=== PATIENT | female | born 1960 | race Caucasian/White ===

== ENCOUNTER → 2016-08-24 | Outpatient (CLI) | payer OTHER | LOC: FIMAGING 08:03 | PROVIDERS: ATTEND Family Medicine | DX: Z12.31 Encounter for screening mammogram for malignant neoplasm of breast (principal) | CPT/HCPCS: G0202 ==

== ENCOUNTER 2017-01-03 10:54 | Day surgery (SDC) | payer OTHER ==
[2017-01-03] MEDS ORDERED: LR 1,000 ML IV ONE (11:14)
[2017-01-03] MEDS ORDERED: LIDOCAINE 1% 2 ML INJ ID PRN (11:14)
[2017-01-03 11:30] VITALS: PULSE 84; TEMP 97.9
--- NOTE | 2017-01-03 12:39 | PDGENHP ---
History & Physical Chief Complaint: phx polyps History of Present Illness: polyps removed in piecemeal Pertinent Past, Social, Family History: polyps removed in 2016 in piecemeal. alcohol glass every two weeks. no tobacco. no fhx cc or polyps Relevant Physical Exam: a+ox3. CTA. S1S2, RRR. +bs, soft nt Cardiorespiratory Assessment: class 1
--- NOTE | 2017-01-03 12:40 | PDPROPOC ---
Sedation Plan of Care Sedation Plan of Care: mental status noted, patient educated of risks, benefits , alternatives, patient can tolerate sedation ASA Classification: ASA 1 Planned drugs: fentanyl, midazolam Mallampati Score: Class 1 Mallampati Reference Image: 2 Patient passed 3-3-2 rule?: Yes
[2017-01-03] MEDS ORDERED: MIDAZOLAM 2 MG/2 ML VIAL ONE (13:06)
[2017-01-03] MEDS ORDERED: fentaNYL 100 MCG/2 ML INJ ONE (13:06)
--- NOTE | 2017-01-03 14:22 | GIREPORT ---
[facility] - Endoscopy Department Patient Name: Ayesha Alvarado Procedure Date: 01/03/2017 12:55 PM Patient Type: Outpatient Attending MD/ ER Physician: Toyin Hart Procedure: Colonoscopy Indications: Surveillance: History of piecemeal removal adenoma on last colonoscopy (< 3 yrs) Providers: Jordi Denton MD Medicines: Fentanyl 100 micrograms IV, Midazolam 5 mg IV Complications: No immediate complications. Description of Procedure: After obtaining informed consent, the scope was passed under direct vision. Throughout the proce dure, the patient's blood pressure, pulse, and oxygen saturations were monitored continuously. The Colonoscope with irrigation channel was introduced through the anus and advanced to the terminal ileum, with identification of the appendiceal orifice and IC valve. The colonoscopy was performe d without difficulty. The patient tolerated the procedure well. The quality of the bowel preparati on was good. Findings: The digital rectal exam was normal. The terminal ileum appeared normal. The entire examined colon appeared normal. Estimated Blood Loss: Estimated blood loss: none. Post Op Diagnosis: - The examined portion of the ileum was normal. - The entire examined colon is normal. - No specimens collected. Recommendation: - High fiber diet. - Repeat colonoscopy in 3 years for surveillance. - Patient has a contact number available for emergencies. The signs and symptoms of potential de layed complications were discussed with the patient. Return to normal activities tomorrow. Written discharge instructions were provided to the patient. - Continue present medications. - Discharge patient to home (ambulatory). - Return to primary care physician as previously scheduled. - Thank you for allowing me to help in your patient's care. Do not hesitate to call with any questions. Attending Participation: I personally performed the entire procedure. Bertin Bacon M.D Jordi Denton MD 01/03/2017 2:22:08 PM Number of Addenda: 0 Note Initiated On: 01/03/2017 12:55 PM Total Procedure Duration Time 0 hours 19 minutes 43 seconds [email or web address]
[2017-01-03 14:23] VITALS: BP 82/50
[2017-01-03 14:55] VITALS: RESP 16
[2017-01-03 15:35] VITALS: O2SAT 95
== END 2017-01-03 15:20 | disposition home or self-care (01) ==
LOC: FSGY 10:54
PROVIDERS: ATTEND Internal Medicine Gastroenterology
PROC: 0DJD8ZZ Inspection of Lower Intestinal Tract, Via Natural or Artificial Opening Endoscopic (ICD-10-PCS; principal; 2017-01-03 12:30)
DX: Z09 Encounter for follow-up examination after completed treatment for conditions other than malignant neoplasm (principal); Z86.010 Personal history of colon polyps; J45.909 Unspecified asthma, uncomplicated; E21.3 Hyperparathyroidism, unspecified
CPT/HCPCS: J2250; J3010

== ENCOUNTER → 2017-09-11 | Outpatient (CLI) | payer OTHER | LOC: FIMAGING 12:04 | PROVIDERS: ATTEND Family Medicine | DX: Z12.31 Encounter for screening mammogram for malignant neoplasm of breast (principal) ==

== ENCOUNTER → 2017-12-14 | Outpatient (CLI) | payer OTHER | LOC: BMCIMAGING 09:40 | PROVIDERS: ATTEND Family Medicine | DX: Z12.31 Encounter for screening mammogram for malignant neoplasm of breast (principal); M85.80 Other specified disorders of bone density and structure, unspecified site; E21.3 Hyperparathyroidism, unspecified ==